=== PATIENT | male | born 1985 | race Caucasian/White ===

== ENCOUNTER 2020-04-21 14:25 | Outpatient (CLI) | payer OTHER, SELFPAY ==
--- NOTE | 2020-04-21 14:37 | MR_ITS ---
WS: [id number] MRI RIGHT KNEE NONCONTRAST TECHNIQUE: Axial PD, coronal PD fat sat, coronal PD, sagittal PD, and sagittal PD fat-sat images obta ined. CLINICAL INFORMATION: RIGHT KNEE PAIN COMPARISON: None. FINDINGS: Distal quadriceps and patella tendons are intact. High-grade tear involving the ACL. Normal PCL. No n ormal ACL fibers visualized. Bony contusion involving the posterior tibial plateau. Normal lateral me niscus. Complex tear involving the posterior horn medial meniscus extending to the articular surface. Blunting of the posterior horn. Small suprapatellar effusion. Moderate chondromalacia patella. Normal medial collateral ligament. Normal Lateral collateral ligamen t appears intact. Normal popliteal fossa. MR/MR knee RT wo con* [id number] IMPRESSION: 1. High-grade tear with complete disruption of the ACL. No normal fibers visua lized. 2. Bony contusion involving the posterior lateral tibial plateau with diffuse edema 3. Complex tear involving the posterior horn medial meniscus extending to the articular surface. Blunting of the posterior horn. 4. Small suprapatellar effusion. 5. Medial and lateral collateral ligaments appear intact.
== END 2020-04-21 14:26 | disposition home or self-care (01) ==
LOC: RADWPI 14:30
PROVIDERS: Visit Provider Nurse Practitioner Family
DX: S83.511A Sprain of anterior cruciate ligament of right knee, initial encounter (principal); S83.231A Complex tear of medial meniscus, current injury, right knee, initial encounter; X58.XXXA Exposure to other specified factors, initial encounter; M25.461 Effusion, right knee
CPT/HCPCS: 73721

== ENCOUNTER 2020-12-11 10:03 | Outpatient (CLI) | payer OTHER, SELFPAY ==
[2020-12-15 14:48] LABS: D Dimer 0.11 ug/mIFEU (0-0.59)
== END 2020-12-11 10:04 | disposition home or self-care (01) ==
PROVIDERS: Visit Provider Nurse Practitioner Family
DX: R06.02 Shortness of breath (principal)
CPT/HCPCS: 85378